=== PATIENT | male | born 1950 | race American Indian/Alaskan Native ===

== ENCOUNTER 2021-02-19 15:57 | Emergency (ER) | payer OTHER, MEDICARE ==
[2021-02-19] MEDS ORDERED: diphenhydrAMINE 50 MG/ML SDV IM ONE (16:13)
[2021-02-19] MEDS ORDERED: methylPREDNISolone Sodium Succinate 125 MG/2 ML SDV IM ONE (16:13)
[2021-02-19] MEDS ORDERED: EPINEPHrine 1 MG/ML SDV IM ONE (16:13)
--- NOTE | 2021-02-19 16:15 | EDM.PDOC ---
ED HPI GENERAL MEDICAL PROBLEM - General Chief Complaint: Allergic Reaction Stated Complaint: SWOLLEN LIP Time Seen by Provider: 02/19/21 16:10 Source of Information: Reports: Patient, RN Notes Reviewed History Limitations: Reports: No Limitations - History of Present Illness INITIAL COMMENTS - FREE TEXT/NARRATIVE: 70-year-old gentleman presents emergency department day with a swollen lip and tongue, he states he has had this reaction before unknown origin may be happened 3 or 4 times he usually gets a shot in the emergency department and it resolves. He denies any new products denies being bit by anything. No shortness of breath no difficulty swallowing his lips and tongue do feel tingly - Related Data Allergies Allergy/AdvReac Type Severity Reaction Status Date / Time acetaminophen [From Vicodin] Allergy Swollen Verified 02/19/21 16:05 Tongue amoxicillin Allergy Swelling Verified 02/19/21 16:05 hydrocodone [From Vicodin] Allergy Swollen Verified 02/19/21 16:05 Tongue lisinopril Allergy Swollen Verified 02/19/21 16:05 Tongue Home Meds: Home Meds . [Unable to Verify Home Med List] 02/19/21 [History] Past Medical History Cardiovascular History: Reports: High Cholesterol, Hypertension Endocrine/Metabolic History: Reports: Diabetes, Type II Social & Family History - Tobacco Use Tobacco Use Status *Q: Never Tobacco User - Recreational Drug Use Recreational Drug Use: Yes Recreational Drug Type: Reports: Marijuana/Hashish Recreational Drug Use Frequency: Rarely ED ROS ALLERGIC REACTION - Review of Systems Review Of Systems: See Below Constitutional: Reports: No Symptoms HEENT: Reports: Other (Lip swelling) Respiratory: Reports: No Symptoms Cardiovascular: Reports: No Symptoms GI/Abdominal: Reports: No Symptoms ED EXAM GENERAL NO PERIP PULSE - Physical Exam Exam: See Below Exam Limited By: No Limitations General Appearance: Alert, WD/WN, No Apparent Distress Throat/Mouth: Normal Inspection, Normal Teeth, Normal Gums, Normal Oropharynx, Normal Voice, No Airway Compromise, Inflammation, Other (Lower lip is markedly edematous slight inflammation noted in the tongue) Respiratory/Chest: No Respiratory Distress, Lungs Clear, Normal Breath Sounds, No Accessory Muscle Use, Chest Non-Tender Cardiovascular: Regular Rate, Rhythm, No Murmur Course - Vital Signs Last Recorded V/S: Last Vital Signs Temp 97.3 F 02/19/21 16:02 Pulse 77 02/19/21 17:31 Resp 18 02/19/21 17:18 BP 151/73 H 02/19/21 17:53 Pulse Ox 95 02/19/21 17:31 - Orders/Labs/Meds Meds: Medications Discontinued Medications Generic Name Dose Route Start Last Admin Trade Name Hakan PRN Reason Stop Dose Admin Diphenhydramine HCl 50 mg 02/19/21 16:13 02/19/21 16:19 Diphenhydramine 50 Mg/Ml Sdv IM 02/19/21 16:14 50 mg ONETIME ONE Administration Epinephrine HCl 0.4 mg 02/19/21 16:13 02/19/21 16:18 Epinephrine 1 Mg/Ml Sdv IM 02/19/21 16:14 0.4 mg ONETIME ONE Administration Methylprednisolone Sodium Succinate 125 mg 02/19/21 16:13 02/19/21 16:21 Methylprednisolone Sodium Succinate 125 Mg/2 Ml Sdv IM 02/19/21 16:14 125 mg ONETIME ONE Administration Departure - Departure Time of Disposition: 18:42 Disposition: Home, Self-Care 01 Condition: Fair Clinical Impression: Allergic reaction Qualifiers: Encounter type: initial encounter Qualified Code(s): T78.40XA - Allergy, unspecified, initial encounter - Discharge Information Instructions: Allergies, Adult Referrals: PCP,Unknown [Primary Care Provider] - Forms: ED Department Discharge Additional Instructions: Fill your prescription for EpiPen, follow-up with your primary care as needed Sepsis Event Note (ED) - Evaluation Sepsis Screening Result: No Definite Risk - Focused Exam Vital Signs: Vital Signs Temp Pulse Resp BP Pulse Ox 02/19/21 17:53 151/73 H 02/19/21 17:31 77 149/81 H 95 02/19/21 17:18 78 18 94 L 02/19/21 16:47 77 158/71 H 94 L 02/19/21 16:18 77 18 158/90 H 97 02/19/21 16:16 72 178/97 H 95 02/19/21 16:02 97.3 F 74 18 178/97 H 94 L - Assessment/Plan Plan: Assessment Acuity = acute Site and laterality = allergic reaction Etiology = unknown Manifestations = none Location of injury = Home Lab values = none Plan Good improvement combination epinephrine and Benadryl as well as Solu-Medrol plan is discharged home and follow-up with primary care as needed prescription for EpiPen written, this happened to him about 5 times unknown etiology This note was dictated using [employer] voice recognition software please call with any questions on syntax or grammar.
== END 2021-02-19 18:58 | disposition home or self-care (01) ==
LOC: JP.ED 15:57
DX: T78.40XA Allergy, unspecified, initial encounter (principal); I10 Essential (primary) hypertension; E11.9 Type 2 diabetes mellitus without complications; Z88.0 Allergy status to penicillin; Z88.5 Allergy status to narcotic agent; Z88.8 Allergy status to other drugs, medicaments and biological substances
CPT/HCPCS: 96372; 99283; J0171; J1200; J2930

== ENCOUNTER 2024-11-29 15:02 | Emergency (ER) | payer MEDICARE, OTHER ==
[2024-11-29 15:27] LABS: BASOPHILS PERCENT AUTO 0.4 % (0.1-1.3); HEMATOCRIT 46.8 % (38.4-49.7); HEMOGLOBIN 16.5 g/dL (12.9-16.9); IMMATURE GRAN ABSOLUTE AUTO 0.05 K/uL (0.00-0.23); IMMATURE GRAN PERCENT AUTO 1.1 % (0.0-0.7); LYMPHOCYTES ABSOLUTE AUTO 0.33 K/uL (0.8-3.3); MEAN CORPUSCULAR HGB CONC 35.3 g/dL (31.6-35.5); MEAN CORPUSCULAR VOLUME 90.9 fL (81.4-99.0); MONOCYTES PERCENT AUTO 2.1 % (3.3-12.6); NEUTROPHILS ABSOLUTE AUTO 4.22 K/uL (1.0-7.6); NEUTROPHILS PERCENT AUTO 89.4 % (40.0-78.1); PLATELET COUNT,PLT 146 K/uL (130-375); RED BLOOD CELL COUNT 5.15 M/uL (4.14-5.76); WHITE BLOOD CELL COUNT,WBC 4.7 K/uL (3.2-11.0)
[2024-11-29] MEDS: Doxycycline 100 MG in Sodium Chloride 0.9% 100 ML IV ONE (15:30)
[2024-11-29 15:31] LABS: BASOPHILS ABSOLUTE AUTO 0.02 K/uL (0.00-0.10); LACTIC ACID 1.4 mmol/L (0.7-2.1)
[2024-11-29] MEDS: Sodium Chloride 0.9% 1,000 ML IV ONE ×2 (15:31→17:26)
[2024-11-29 15:50] LABS: ALANINE AMINOTRANSFERASE,ALT 60 U/L (12-78); ALBUMIN 3.8 g/dL (3.4-5.0); ALKALINE PHOSPHATASE 123 U/L (46-116); ASPARTATE AMNIOTRANSFERASE,AST 44 U/L (15-37); BILIRUBIN TOTAL 0.9 mg/dL (0.2-1.0); BLOOD UREA NITROGEN,BUN 21 mg/dL (7-18); CALCIUM 9.4 mg/dL (8.5-10.1); CARBON DIOXIDE,CO2 25 mmol/L (21-32); CHLORIDE,CL 95 mmol/L (100-108); CREATININE 1.2 mg/dL (0.8-1.3); EST CRCL DRUG DOSING (CG) 59.26 mL/min; ESTIMATED GFR 64 mL/min (>60); GLUCOSE RANDOM 303 mg/dL (74-106); POTASSIUM,K 3.8 mmol/L (3.6-5.2); PROTEIN TOTAL,TP 7.5 g/dL (6.4-8.2); SODIUM,NA 132 mmol/L (140-148)
[2024-11-29 15:51] LABS: ANION GAP 15.8 mmol/L (5.0-14.0)
[2024-11-29 16:08] LABS: LYME AB IgM Negative (Negative)
[2024-11-29 16:09] LABS: LYME AB IgG Negative (Negative)
[2024-11-29 16:20] LABS: APPEARANCE,URINE CLEAR (CLEAR); BILIRUBIN,URINE NEGATIVE (NEGATIVE); COLOR,URINE YELLOW (YELLOW); GLUCOSE,URINE 500 mg/dL (NEGATIVE); KETONES,URINE 15 mg/dL (NEGATIVE); LEUKOCYTE ESTERASE,URINE NEGATIVE (NEGATIVE); NITRITE,URINE NEGATIVE (NEGATIVE); OCCULT BLOOD,URINE NEGATIVE (NEGATIVE); PH,URINE 5.5 (5.0-8.0); PROTEIN,URINE 30 mg/dL (NEGATIVE); UROBILINOGEN,URINE 0.2 EU/dL (0.2-1.0)
[2024-11-29 16:26] LABS: AMORPHOUS SEDIMENT,URINE NOT SEEN; BACTERIA,URINE FEW; EPITHELIAL CELLS,URINE NOT SEEN; MUCUS,URINE RARE; RBC,URINE 0-5 (0-5); WBC,URINE 0-5 (0-5)
[2024-11-29] MEDS: Acetaminophen 1,000 MG in Premix Bag 1 BAG IV ONE (16:39)
[2024-11-29] MEDS ORDERED: Sodium Chloride 0.9% 10 ML SDV FLUSH ONE (16:51)
[2024-11-29] MEDS: Iopamidol 755 Mg/ML 100 ML Bottle IV SCH (17:21)
[2024-11-29] MEDS: Sodium Chloride 0.9% 10 ML Syringe FLUSH PRN (17:21)
[2024-11-29] MEDS: Sodium Chloride 0.9% 100 ML IV SCH (17:21)
[2024-12-03 00:50] LABS: ANAPLASMA PHAGOCYTOPHILUM PCR Not Detected; BABESIA MICROTI BY PCR Not Detected; BABESIA SPECIES BY PCR Not Detected; EHRLICHIA CHAFFEENSIS BY PCR Not Detected; EHRLICHIA EWINGII/CANIS BY PCR Not Detected; EHRLICHIA MURIS-LIKE BY PCR Not Detected
== END 2024-11-29 19:02 | disposition home or self-care (01) ==
LOC: JP.ED 15:02
DX: A84.9 Tick-borne viral encephalitis, unspecified (principal); E86.0 Dehydration; R50.9 Fever, unspecified; I10 Essential (primary) hypertension; E11.9 Type 2 diabetes mellitus without complications; E78.00 Pure hypercholesterolemia, unspecified; Z88.5 Allergy status to narcotic agent; Z88.1 Allergy status to other antibiotic agents; Z88.8 Allergy status to other drugs, medicaments and biological substances; Z79.899 Other long term (current) drug therapy; Z79.84 Long term (current) use of oral hypoglycemic drugs
CPT/HCPCS: 36415; 71045; 71275; 80053; 80307; 81001; 83605; 85025; 86140; 86618; 87040; 87426; 87468; 87469; 87484; 87798; 96361; 96365; 96375; 99284; J0131; J3490; J7030; Q9967